=== PATIENT | female | born 1950 | race Caucasian/White ===

== ENCOUNTER 2017-03-16 06:59 | Day surgery (SDC) | payer OTHER ==
[2017-03-16 09:05] VITALS: BP 148/70
== END 2017-03-16 08:54 | disposition home or self-care (01) ==
LOC: SDC 06:59
PROC: 08RK3JZ Replacement of Left Lens with Synthetic Substitute, Percutaneous Approach (ICD-10-PCS; principal; 2017-03-16)
DX: H26.9 Unspecified cataract (principal)